=== PATIENT | male | born 1960 | race Caucasian/White ===

== ENCOUNTER 2017-12-07 18:06 | Emergency (ER) | payer OTHER ==
[2017-12-07] MEDS ORDERED: LEVOFLOXACIN 25 MG/ML 750 MG in SODIUM CHLORIDE 0.9% 250 ML 150 ML IV ONE (18:25)
[2017-12-07] MEDS ORDERED: MORPHINE SULFATE 10 MG/ML SOL IV ONE ×2 (18:26→20:21)
[2017-12-07] MEDS ORDERED: SODIUM CHLORIDE 0.9% 1000ML 1,000 ML IV SCH (18:30)
[2017-12-07] MEDS ORDERED: MORPHINE SULFATE 10 MG/ML SOL ONE ×2 (18:34→20:22)
[2017-12-07] MEDS ORDERED: LEVOFLOXACIN 25 MG/ML SOL IV ONE (18:36)
[2017-12-07 18:52] LABS: HEMATOCRIT 42 % (39-53); MEAN CORPUSCULAR HGB CONC 34.3 gm/dl (32.0-36.0); MEAN CORPUSCULAR VOLUME 83 fL (80-100)
[2017-12-07 19:10] LABS: BASOPHILS % (MANUAL) 0 % (0-3); EOSINOPHILS % (MANUAL) 1 % (0-9); LYMPHOCYTES % (MANUAL) 16 % (10-50)
[2017-12-07 19:11] LABS: NORMAL RBCS PRESENT
[2017-12-07 19:18] LABS: ALBUMIN 4.1 gm/dl (3.4-5.0); CALCIUM 9.4 mg/dl (8.5-10.1); POTASSIUM 3.9 mMol/L (3.5-5.1)
[2017-12-07 20:37] VITALS: TEMP 98.4
[2017-12-07 20:59] VITALS: BP 146/69; PULSE 88; RESP 16; O2SAT 99
== END 2017-12-07 20:53 | disposition short-term general hospital (02) | DRG 373 ==
LOC: ED 18:06
DX: K35.3 Acute appendicitis with localized peritonitis (principal)
CPT/HCPCS: 74177; 80053; 85007; 85027; 85610; 99285; J1956; J2270; Q9967

== ENCOUNTER 2018-11-08 10:27 | Day surgery (SDC) | payer OTHER ==
[~2018-11-08 10:27] MED LIST: PROPOFOL 500 MG/50 ML EMU IV ONE
[2018-11-08 12:24] VITALS: BP 124/74; PULSE 78; RESP 20; TEMP 97.5; O2SAT 97
== END 2018-11-08 12:40 | disposition home or self-care (01) | DRG 951 ==
LOC: SURG 10:27
PROVIDERS: ATTEND Surgery
DX: Z12.11 Encounter for screening for malignant neoplasm of colon (principal)
CPT/HCPCS: J2704